=== PATIENT | male | born 1980 | race Caucasian/White ===

== ENCOUNTER 2023-07-02 23:32 | Emergency (ER) | payer OTHER ==
[~2023-07-02] VITALS: Ht 185.4 cm; Wt 106.6 kg
[2023-07-02 23:32] VITALS: BP 141/75; PULSE 90; RESP 17; TEMP 97.8; O2SAT 96
[2023-07-02 23:46] VITALS: BP 141/75; PULSE 90; RESP 17; TEMP 97.8; O2SAT 96
== END 2023-07-02 23:46 ==
LOC: MED 23:32
DX: Z02.89 Encounter for other administrative examinations (principal); V89.2XXA Person injured in unspecified motor-vehicle accident, traffic, initial encounter; Y93.89 Activity, other specified; Y92.410 Unspecified street and highway as the place of occurrence of the external cause; Y99.8 Other external cause status
CPT/HCPCS: 99283